=== PATIENT | female | born 1950 | race Caucasian/White ===

== ENCOUNTER 2022-01-30 10:45 | Day surgery (SDC) | payer MEDICARE, OTHER ==
[2022-01-30 11:45] VITALS: TEMP 97.1
[2022-01-30] MEDS ORDERED: ONDANSETRON 4 MG/2 ML VIAL ONE ×2 (11:50→15:02)
[2022-01-30] MEDS ORDERED: LACTATED RINGERS 1,000 ML IV ONE ×2 (11:52→13:53)
[2022-01-30] MEDS ORDERED: MIDAZOLAM 2 MG/2 ML VIAL IVP ONE (11:56)
[2022-01-30] MEDS ORDERED: fentaNYL (PF) 50 MCG/ML 2 ML AMP IVP ONE (11:56)
[2022-01-30] MEDS ORDERED: DEXAMETHASONE SOD PHOSPHATE 4 MG/ML 1 ML VIAL IVP ONE (12:11)
[2022-01-30] MEDS: ONDANSETRON 4 MG/2 ML VIAL IVP ONE ×2 (12:11→15:01)
--- NOTE | 2022-01-30 12:12 | P.ANPRN ---
Procedure Note - Anesthesia - Nerve Block Performed Left Supraclavicular Single Time Out Performed: Yes Date of Procedure: 01/30/22 Procedure Start Time: 11:56 Procedure Stop Time: 12:06 Location of Patient: PreOp Indication: Requested by Surgeon Specifically requested for management of pain by DrThaira: Mae Hudson Sedation Type: Sedate with meaningful contact maintained Preparation: Sterile Prep Position: Supine Needle Types: Pajunk Needle Gauge: 21 Ultrasound used to visualize needle placement: Yes Ultrasound used to observe medication spread: Yes Injectate: 0.5% Ropivacaine (see comment for volume) (25 ml + 4 mg Deaxamethason) Blood Aspirated: No Pain Paresthesia on Injection Noted: No Resistance on Injection: Normal Image Stored and Saved: Yes Events: Uneventful and Well Tolerated
[2022-01-30] MEDS ORDERED: fentaNYL (PF) 50 MCG/ML 2 ML AMP ONE (12:44)
[2022-01-30] MEDS ORDERED: MIDAZOLAM 2 MG/2 ML VIAL ONE (12:44)
[2022-01-30] MEDS ORDERED: PROPOFOL 10 MG/ML 20 ML VIAL IV ONE (12:44)
[2022-01-30] MEDS ORDERED: LIDOCAINE 2% INJ 20 MG/ML (2 ML VIAL) ONE (12:44)
[2022-01-30] MEDS ORDERED: DEXAMETHASONE SOD PHOSPHATE 4 MG/ML 1 ML VIAL ONE (12:44)
[2022-01-30] MEDS ORDERED: ROPIVACAINE 5 MG/ML 30 ML VIAL ONE (12:44)
[2022-01-30] MEDS ORDERED: DEXAMETHASONE SOD PHOSPHATE 10 MG/ML 1 ML VIAL ONE (12:44)
[2022-01-30] MEDS ORDERED: ePHEDrine 50 MG/ML 1 ML VIAL ONE (12:44)
[2022-01-30] MEDS ORDERED: SODIUM CHLORIDE 0.9% 100 ML with ceFAZolin 2,000 MG IV ONE ×2 (12:49)
--- NOTE | 2022-01-30 14:04 | P.OP ---
Date of Procedure: 01/30/22 Preoperative Diagnosis: Left distal radius fracture, extra-articular Postoperative Diagnosis: Same Procedure(s) Performed: left distal radius open reduction internal fixation Implants: Skeletal dynamics 3 hole volar fixed angle plate Anesthesia: digna RUTHERFORD Surgeon: Mae Hudson Burrer Operator #1: Amy Fitzgerald Estimated Blood Loss (ml): 5 Condition: stable Disposition: PACU Indications for Procedure: Marsha is a 71-year-old female who had a ground-level fall on 01/18/2022. X-rays showed that she has an extra-articular distal radius fracture with about 30 of dorsal angulation. We had a long discussion about her treatment options and she would like to have this corrected with an open reduction internal fixation. Description of Procedure: Patient, operative extremity, and procedure were identified in the preoperative holding area. After informed consent was obtained the patient received a regional block by the anesthesia team. She was then brought back to the operating room. The extremity was then prepped and draped in normal sterile fashion with a tourniquet along the patient's brachium. After formal timeout was performed the tourniquet was inflated. A longitudinal incision was made over the FCR tendon. Dissection was carried down to the FCR tendon itself with care taken to protect cutaneous nerves. The FCR tendon was mobilized ulnarly and the floor of the sub-sheath was incised longitudinally. Dissection was carried down to the flexor tendons which were scooped aside to access the pronator quadratus muscle. The pronator quadratus was incised longitudinally to access the fracture site. A Layton elevator was then introduced into the fracture site and utilized to assist in the reduction. Reduction was confirmed on fluoroscopy and found to be adequate. A 3 hole plate was then selected and provisionally placed with K wires. Placement and reduction were again confirmed on fluoroscopy. Attention was then turned to the distal aspect of the plate. Smooth locking pegs of appropriate length were inserted into the distal aspect. Attention was then turned to the proximal aspect of the plate were 2 nonlocking and 1 locking fully threaded screws were inserted. Reduction and hardware placement were again confirmed on fluoroscopy. DRUJ was tested and found to be stable. The tourniquet was then let down hemostasis was achieved wound was closed in a layered fashion with 4-0 Monocryl skin glue and Steri-Strips. Wound was dressed with Adaptic 4 x 4's cast padding and a volar splint. Patient was aroused by the anesthesia team and brought back to PACU in stable condition.
[2022-01-30 14:13] VITALS: RESP 16
[2022-01-30 15:12] VITALS: BP 156/82; PULSE 69
== END 2022-01-30 15:55 | disposition home or self-care (01) ==
LOC: OR 10:45
PROVIDERS: ATTEND Orthopaedic Surgery Hand Surgery
DX: S52.552A Other extraarticular fracture of lower end of left radius, initial encounter for closed fracture (principal); G89.18 Other acute postprocedural pain; E78.5 Hyperlipidemia, unspecified; E03.9 Hypothyroidism, unspecified; F41.0 Panic disorder [episodic paroxysmal anxiety]; N28.9 Disorder of kidney and ureter, unspecified; F17.210 Nicotine dependence, cigarettes, uncomplicated; Z79.890 Hormone replacement therapy; Z79.899 Other long term (current) drug therapy; W18.30XA Fall on same level, unspecified, initial encounter; Z82.49 Family history of ischemic heart disease and other diseases of the circulatory system; Z83.3 Family history of diabetes mellitus
CPT/HCPCS: 64415; 76942; 25607; C1713; J2250; J1100 ×2; J2405; J0690; J3010; J2795; J2704; J2001